=== PATIENT | male | born 1945 | race Caucasian/White ===

== ENCOUNTER → 2017-07-27 | Outpatient (CLI) | payer OTHER | LOC: CARD 10:14 | PROVIDERS: ATTEND Registered Nurse | DX: R07.9 Chest pain, unspecified (principal); I10 Essential (primary) hypertension | CPT/HCPCS: 93017 ==

== ENCOUNTER 2018-01-28 17:45 | Observation (INO) | payer OTHER ==
[~2018-01-28] VITALS: Ht 182.9 cm; Wt 88.2 kg
[2018-01-28] VITALS (7 sets, daily range): BP systolic 131–161; BP diastolic 73–105
[2018-01-28] MEDS ORDERED: AMLO10TA6 PO (18:03)
[2018-01-28] MEDS ORDERED: BENA20TA7 PO (18:03)
[2018-01-28] MEDS ORDERED: ASPIRIN 81 MG CHEW (CHILDREN'S ASA) PO ONE (18:15)
[2018-01-28] MEDS ORDERED: NITROGLYCERIN 0.4 MG SL TABS BTL 25'S SL PRN (18:15)
[2018-01-28 18:22] LABS: BASOPHILS # (AUTO) 0.1 10^3/uL (0.0-0.1); BASOPHILS % (AUTO) 1 % (0-10); EOSINOPHILS # (AUTO) 0.1 10^3/uL (0.0-0.3); EOSINOPHILS % (AUTO) 0 % (0-10); HEMATOCRIT 47 % (40-54); HEMOGLOBIN 16.3 G/DL (13.3-17.7); LYMPHOCYTES # (AUTO) 3.4 X 10^3 (1.0-4.0); LYMPHOCYTES % (AUTO) 24 % (12-44); MEAN CORPUSCULAR HEMOGLOBIN 32 PG (25-34); MEAN CORPUSCULAR HGB CONC 34 G/DL (32-36); MEAN CORPUSCULAR VOLUME 92 FL (80-99); MONOCYTES # (AUTO) 2.1 X 10^3 (0.0-1.0); MONOCYTES % (AUTO) 15 % (0-12); NEUTROPHILS # (AUTO) 8.2 X 10^3 (1.8-7.8); NEUTROPHILS % (AUTO) 60 % (42-75); PLATELET COUNT 282 10^3/uL (130-400); RED BLOOD COUNT 5.17 10^6/uL (4.35-5.85); RED CELL DISTRIBUTION WIDTH 13.5 % (10.0-14.5); WHITE BLOOD COUNT 13.8 10^3/uL (4.3-11.0)
[2018-01-28 18:28] LABS: PROTHROMBIN TIME PATIENT 13.1 SEC (12.2-14.7)
[2018-01-28] MEDS ORDERED: NS IV 1000 ML 1,000 ML IV ONE (18:30)
--- NOTE | 2018-01-28 18:30 | ED Chest Pain ---
General Chief Complaint: Chest Pain Stated Complaint: WEIRD CHEST PAIN Nursing Triage Note: AMB TO ROOM C/O CHEST PAIN SINCE 10A WAS MOVING APPLIANCES WORSE ON INSPIRATION AND MOVING NO SOA Nursing Sepsis Screen: No Definite Risk Source: patient (SOMEWHAT DIFFICULT HISTORIAN--DOES NOT VOLUNTEER ANY INFORMATION, AND GIVES VERY BRIEF ANSWERS) History of Present Illness Date Seen by Provider: Jan 28, 2018 Time Seen by Provider: 17:50 Initial Comments PT ARRIVES VIA POV FROM HOME C/O MID CHEST DISCOMFORT SINCE 1000 AM TODAY RATES PAIN 5/10 PAIN RADIATES UP INTO NECK STATES PAIN BEGAN WHILE HE WAS TAKING APPLIANCES OUT OF HOUSE AND DOING HEAVY EXERTION ALL DAY--GOING UP AND DOWN STAIRS ALL DAY, TAKING LOTS OF TRASH, ETC. OUT TO DUMPSTER ALL DAY, ETC. STATES PAIN IS WORSE WITH BREATHING, AND MOVING AND WALKING--STATES "LIKE A VIBRATION" STATES PAIN BEGAN WITH HEAVY EXERTION, BUT CLAIMS THAT EXERTION DOES NOT MAKE IT WORSE, BUT NOTICES IT WORSE WITH REST NO SHORTNESS OF BREATH DENIES PALPITATIONS NO SWEATS NO SWELLING IN LEGS/FEET OR PAIN IN CALVES NO COUGH NO FEVER OR RECENT ILLNESS NO NAUSEA/VOMITING NO DIZZINESS OR SYNCOPE NO HISTORY OF SIMILAR PT JUST GOT BACK FROM A TRIP TO [place] A WEEK AGO. PCP: [facility] Allergies and Home Medications Allergies Coded Allergies: No Known Drug Allergies (Unverified , 01/28/18) Patient Home Medication List Home Medication List Reviewed: Yes Review of Systems Review of Systems Constitutional: no symptoms reported; No chills, No diaphoresis, No dizziness, No fever EENTM: No Symptoms Reported Respiratory: No Symptoms Reported; Denies Cough, Denies Orthopnea, Denies Shortness of Air, Denies SOA With Exertion Cardiovascular: See HPI, Chest Pain; Denies Edema, Denies Irregular Heart Rate , Denies Lightheadedness, Denies Palpitations, Denies Syncope Gastrointestinal: No Symptoms Reported; Denies Abdominal Pain, Denies Nausea, Denies Vomiting Genitourinary: No Symptoms Reported Musculoskeletal: see HPI; No back pain Skin: no symptoms reported Psychiatric/Neurological: No Symptoms Reported; Denies Numbness, Denies Paresthesia Endocrine: No Symptoms Reported Hematologic/Lymphatic: No Symptoms Reported Past Rwhanfk-Biyori-Vyeinw Hx Patient Social History Alcohol Use: Denies Use Recreational Drug Use: No Smoking Status: Never a Smoker Recent Foreign Travel: Yes ([place]) Contact w/Someone Who Travel: Yes Recent Infectious Disease Expo: No Past Medical History Surgeries: Yes (HERNIA REPAIR) Abdominal, Appendectomy Respiratory: No Cardiac: Yes Hypertension Neurological: No Genitourinary: No Gastrointestinal: No Musculoskeletal: No Endocrine: No HEENT: No Cancer: No Psychosocial: No Integumentary: No Blood Disorders: No Physical Exam Vital Signs Vital Signs - First Documented 01/28/18 17:45 Temp 97.8 Pulse 90 Resp 18 B/P (MAP) 173/89 (117) Pulse Ox 96 Capillary Refill : Less Than 3 Seconds Height, Weight, BMI Height: 6'" Weight: 190lbs. oz. 86.923185hp; BMI Method:Stated General Appearance: No Apparent Distress, WD/WN, Other (FLAT AFFECT, DOES NOT MAKE EYE CONTACT--LOOKS STRAIGHT AHEAD) Neck: Full Range of Motion, Normal Inspection, Non Tender, Supple; No Carotid Bruit, No JVD Respiratory: Chest Non Tender, Normal Breath Sounds, No Accessory Muscle Use, No Respiratory Distress Cardiovascular: Regular Rate, Rhythm, No Edema, No JVD, No Murmur, Normal Peripheral Pulses Gastrointestinal: Normal Bowel Sounds, No Organomegaly, No Pulsatile Mass, Non Tender, Soft Extremity: Normal Capillary Refill, Normal Inspection, Normal Range of Motion, Non Tender, No Calf Tenderness, No Pedal Edema Neurologic/Psychiatric: Alert, Oriented x3, No Motor/Sensory Deficits, taper/finisher II- XII Norm as Tested Skin: Normal Color, Warm/Dry Progress/Results/Core Measures Results/Orders Lab Results Laboratory Tests Test 01/28/18 18:11 Range/Units White Blood Count 13.8 H 4.3-11.0 10^3/uL Red Blood Count 5.17 4.35-5.85 10^6/uL Hemoglobin 16.3 13.3-17.7 G/DL Hematocrit 47 40-54 % Mean Corpuscular Volume 92 80-99 FL Mean Corpuscular Hemoglobin 32 25-34 PG Mean Corpuscular Hemoglobin Concent 34 32-36 G/DL Red Cell Distribution Width 13.5 10.0-14.5 % Platelet Count 282 130-400 10^3/uL Mean Platelet Volume 10.0 7.4-10.4 FL Neutrophils (%) (Auto) 60 42-75 % Lymphocytes (%) (Auto) 24 12-44 % Monocytes (%) (Auto) 15 H 0-12 % Eosinophils (%) (Auto) 0 0-10 % Basophils (%) (Auto) 1 0-10 % Neutrophils # (Auto) 8.2 H 1.8-7.8 X 10^3 Lymphocytes # (Auto) 3.4 1.0-4.0 X 10^3 Monocytes # (Auto) 2.1 H 0.0-1.0 X 10^3 Eosinophils # (Auto) 0.1 0.0-0.3 10^3/uL Basophils # (Auto) 0.1 0.0-0.1 10^3/uL Prothrombin Time 13.1 12.2-14.7 SEC INR Comment 1.0 0.8-1.4 Activated Partial Thromboplast Time 29 24-35 SEC Sodium Level 140 135-145 MMOL/L Potassium Level 4.0 3.6-5.0 MMOL/L Chloride Level 107 98-107 MMOL/L Carbon Dioxide Level 22 21-32 MMOL/L Anion Gap 11 5-14 MMOL/L Blood Urea Nitrogen 18 7-18 MG/DL Creatinine 1.20 0.60-1.30 MG/DL Estimat Glomerular Filtration Rate 60 BUN/Creatinine Ratio 15 Glucose Level 95 70-105 MG/DL Calcium Level 9.5 8.5-10.1 MG/DL Corrected Calcium 9.2 8.5-10.1 MG/DL Magnesium Level 2.3 1.8-2.4 MG/DL Total Bilirubin 0.7 0.1-1.0 MG/DL Aspartate Amino Transf (AST/SGOT) 16 5-34 U/L Alanine Aminotransferase (ALT/SGPT) 19 0-55 U/L Alkaline Phosphatase 50 40-136 U/L Total Creatine Kinase 106 30-200 U/L Creatine Kinase MB 1.7 <6.6 NG/ML Myoglobin 44.0 10.0-92.0 NG/ML Troponin I < 0.30 <0.30 NG/ML B-Type Natriuretic Peptide 47.4 <100.0 PG/ML Total Protein 7.8 6.4-8.2 GM/DL Albumin 4.4 3.2-4.5 GM/DL Amylase Level 90 25-125 U/L Lipase 37 8-78 U/L My Oswald Akers - HEBER RODRIGUEZ DO Cbc With Automated Diff (01/28/18 18:11) Magnesium (01/28/18 18:11) Chest 1 View, Ap/Pa Only (01/28/18 18:11) Ekg Tracing (01/28/18 18:11) Cardiac Profile 1 (01/28/18 18:11) Comprehensive Metabolic Panel (01/28/18 18:11) Myoglobin Serum (01/28/18 18:11) Protime With Inr (01/28/18 18:11) Partial Thromboplastin Time (01/28/18 18:11) O2 (01/28/18 18:11) Monitor-Rhythm Ecg Trace Only (01/28/18 18:11) Lipid Panel (01/29/18 06:00) Aspirin Chewable Tablet (Baby Aspirin Ch (01/28/18 18:15) Nitroglycerin 0.4 Mg Btl 25's (Nitrostat (01/28/18 18:15) Saline Lock/Iv-Start (01/28/18 18:11) Creatine Kinase (01/28/18 18:11) Creatine Kinase Mb (01/28/18 18:11) Lipase (01/28/18 18:11) Amylase (01/28/18 18:11) BNP (01/28/18 18:11) Saline Lock/Iv-Start (01/28/18 18:30) Ns Iv 1000 Ml (Sodium Chloride 0.9%) (01/28/18 18:30) Ct Angio Chest W (01/28/18 18:50) Ondansetron Oral Dissolve Tab (Zofran (01/28/18 18:50) Fentanyl Injection (Sublimaze Injection (01/28/18 18:50) Iohexol Injection (Omnipaque 350 Mg/Ml 1 (01/28/18 19:00) Sodium Chloride Flush (Catheter Flush Sy (01/28/18 19:00) Ns (Ivpb) (Sodium Chloride 0.9%) (01/28/18 19:00) Pharmacy Communication (Pharmacy Communi (01/28/18 18:54) Ondansetron Injection (Zofran Injectio (01/28/18 18:58) Fentanyl Injection (Sublimaze Injection (01/28/18 20:10) Medications Given in ED Current Medications Medications Dose Ordered Sig/Svitlana Route Start Time Stop Time Status Last Admin Dose Admin Aspirin 324 mg ONCE ONCE PO 01/28/18 18:15 01/28/18 18:16 DC 01/28/18 18:20 324 MG Iohexol 150 ml ONCE ONCE IV 01/28/18 19:00 01/28/18 19:01 DC 01/28/18 19:36 125 ML Nitroglycerin 0.4 mg UD PRN SL 01/28/18 18:15 01/28/18 18:30 0.4 MG Ondansetron HCl 4 mg STK-MED ONCE .ROUTE 01/28/18 18:58 01/28/18 19:03 DC 01/28/18 19:00 4 MG Sodium Chloride 10 ml NEEDED PRN IV 01/28/18 19:00 01/28/18 19:36 10 ML Sodium Chloride 250 ml ONCE ONCE IV 01/28/18 19:00 01/28/18 19:01 DC 01/28/18 19:36 80 ML Sodium Chloride 1,000 ml @ 0 mls/hr Q0M ONCE IV 01/28/18 18:30 01/28/18 20:34 DC 01/28/18 18:37 0 MLS/HR Vital Signs/I&O 01/28/18 17:45 Temp 97.8 Pulse 90 Resp 18 B/P (MAP) 173/89 (117) Pulse Ox 96 Blood Pressure Mean: 117 Progress Progress Note : Progress Note SIGNIFICANT BP DROP INTO 70'S SYSTOLIC WITH NTG. GIVEN FLUID BOLUS. BP UP TO > 100 SYSTOLIC. PT HAD BRIEF RELIEF OF PAIN WITH NTG, BUT PAIN STARTED TO RETURN, GIVEN FENTANYL PAIN RESOLVED WITH FENTANYL PT IS NOW SMILING, TALKATIVE, JOKING, ANIMATED, MAKES GOOD EYE CONTACT. Initial ECG Impression Date: Jan 28, 2018 Initial ECG Impression Time: 17:53 Initial ECG Rate: 87 Initial ECG Rhythm: Normal Sinus Diagnostic Imaging Comments CXR--NO ACUTE PROCESS, CHRONIC MILD INTERSTITIAL CHANGES, PER RADIOLOGIST REPORT @ 1852 CT CHEST ANGIOGRAM--NO P.E OR ACUTE ABNORMALITIES, PER RADIOLOGIST REPORT @ 1999 Reviewed: Reviewed by Me Departure Communication (Admissions) 2009--SPOKE WITH DR. ELLER, HOSPITALIST CUSTOMER [employer] ASSOCIATE. ACCEPTS PT FOR ADMIT. Impression Primary Impression: Chest pain Disposition: ADMITTED INPATIENT Condition: Improved Admissions Decision to Admit Reason: Admit from ER (General) Decision to Admit/Date: Jan 28, 2018 Time/Decision to Admit Time: 20:10 Departure-Patient Inst. Referrals: PUJA PEARL MD (PCP/Family) Primary Care Physician HEBER RODRIGUEZ DO Jan 28, 2018 18:30
[2018-01-28 18:38] LABS: ALANINE AMINOTRANSFERASE 19 U/L (0-55); ALBUMIN 4.4 GM/DL (3.2-4.5); ALKALINE PHOSPHATASE 50 U/L (40-136); AMYLASE 90 U/L (25-125); BILIRUBIN,TOTAL 0.7 MG/DL (0.1-1.0); BUN/CREATININE RATIO 15; CALCIUM 9.5 MG/DL (8.5-10.1); CARBON DIOXIDE 22 MMOL/L (21-32); CHLORIDE 107 MMOL/L (98-107); CREATINE KINASE 106 U/L (30-200); GFR ESTIMATED 60; GLUCOSE 95 MG/DL (70-105); LIPASE 37 U/L (8-78); MAGNESIUM 2.3 MG/DL (1.8-2.4); SODIUM 140 MMOL/L (135-145); TOTAL PROTEIN 7.8 GM/DL (6.4-8.2)
--- NOTE | 2018-01-28 18:39 | Diagnostic Imaging Report ---
INDICATION: Chest pain. FINDINGS: There appear to be some mild chronic interstitial changes within the lungs. No findings of congestive failure. Heart size appears appropriate. There is no focal consolidation. There is no effusion or pneumothorax. No acute osseous abnormality. IMPRESSION: 1. Mild chronic interstitial change within the lungs. No acute cardiopulmonary process evident. Dictated by: Dictated on workstation # [id number]
[2018-01-28 18:45] LABS: CREATINE KINASE MB 1.7 NG/ML (<6.6)
[2018-01-28] MEDS ORDERED: ONDANSETRON 4 MG (ZOFRAN) ORAL DISSOLVE TAB SL STA (18:50)
[2018-01-28] MEDS ORDERED: fentaNYL INJECTION 100 MCG/2 ML AMP IVP STA ×2 (18:50→20:10)
[2018-01-28] MEDS ORDERED: ONDANSETRON 4 MG/2 ML (SDV) Z0FRAN ONE (18:58)
[2018-01-28] MEDS ORDERED: NS 250 ML (IVPB) BAG IV ONE (19:00)
[2018-01-28] MEDS ORDERED: CATHETER FLUSH 10 ML SYR IV PRN (19:00)
[2018-01-28] MEDS ORDERED: IOHEXOL 350 MG/ML 150 ML (OMNIPAQUE 350) VIAL IV ONE (19:00)
--- NOTE | 2018-01-28 19:45 | Diagnostic Imaging Report ---
PROCEDURE: CT angiography of the chest with contrast. TECHNIQUE: Multiple contiguous axial images were obtained through the chest after uneventful bolus administration of intravenous contrast. 2D reconstructed CTA MIP acquisitions were also performed. INDICATION: Chest pain. FINDINGS: The pulmonary arterial branches are well opacified and widely patent. There is no filling defect nor evidence for pulmonary arterial embolus. The patent thoracic aorta is nonaneurysmal and nonacute. The heart and pericardium appear unremarkable. There is no pleural effusion and there is no pneumothorax. Lungs are clear, aside from some mild dependent and juliette-fissural subsegmental atelectasis. No alveolar consolidation or vito pneumonia and no convincing evidence for pulmonary edema is found. The visualized upper abdomen reveals partial visualization of left renal parapelvic cysts with a nonfocal gallbladder. No acute appearing abnormality. IMPRESSION: Negative for PE or other acute abnormalities. Dictated by: Dictated on workstation # [id number]
[2018-01-28] MEDS ORDERED: fentaNYL INJECTION 100 MCG/2 ML AMP IVP PRN (21:45)
[2018-01-29] MEDS ORDERED: ACETAMINOPHEN 325 MG TABLET PO PRN (00:30)
[2018-01-29 00:50] LABS: CREATINE KINASE 65 U/L (30-200)
[2018-01-29] MEDS: NS IV 1000 ML 1,000 ML IV SCH ×3 (01:05→20:33)
[2018-01-29] MEDS: cefTRIAXone FOR IV USE 1,000 MG in NS (IVPB) 50 ML IV SCH (01:09)
[2018-01-29 04:00] VITALS: BP 126/71
[2018-01-29 06:41] LABS: BASOPHILS % (AUTO) 0 % (0-10); EOSINOPHILS % (AUTO) 0 % (0-10); HEMATOCRIT 44 % (40-54); HEMOGLOBIN 15.1 G/DL (13.3-17.7); LYMPHOCYTES # (AUTO) 1.7 X 10^3 (1.0-4.0); LYMPHOCYTES % (AUTO) 11 % (12-44); MEAN CORPUSCULAR HEMOGLOBIN 32 PG (25-34); MEAN CORPUSCULAR HGB CONC 34 G/DL (32-36); MEAN CORPUSCULAR VOLUME 94 FL (80-99); MEAN PLATELET VOLUME 10.7 FL (7.4-10.4); MONOCYTES # (AUTO) 2.4 X 10^3 (0.0-1.0); MONOCYTES % (AUTO) 16 % (0-12); NEUTROPHILS % (AUTO) 73 % (42-75); PLATELET COUNT 219 10^3/uL (130-400); RED BLOOD COUNT 4.69 10^6/uL (4.35-5.85); RED CELL DISTRIBUTION WIDTH 13.4 % (10.0-14.5)
[2018-01-29 06:56] LABS: ALANINE AMINOTRANSFERASE 13 U/L (0-55); ALBUMIN 3.7 GM/DL (3.2-4.5); ALKALINE PHOSPHATASE 42 U/L (40-136); BILIRUBIN,TOTAL 0.8 MG/DL (0.1-1.0); BUN/CREATININE RATIO 15; CALCIUM 8.6 MG/DL (8.5-10.1); CARBON DIOXIDE 21 MMOL/L (21-32); CHLORIDE 109 MMOL/L (98-107); CHOLESTEROL 107 MG/DL (< 200); GFR ESTIMATED > 60; GLUCOSE 129 MG/DL (70-105); HDL CHOLESTEROL 44 MG/DL (40-60); POTASSIUM 3.8 MMOL/L (3.6-5.0); SODIUM 138 MMOL/L (135-145); TOTAL PROTEIN 6.5 GM/DL (6.4-8.2); TRIGLYCERIDES 37 MG/DL (<150); VLDL CHOLESTEROL 7 MG/DL (5-40)
[2018-01-29 07:01] LABS: BAND NEUTROPHILS 0 %; NEUTROPHILS % (MANUAL) 78 %
[2018-01-29 07:02] LABS: BASOPHILS % (MANUAL) 0 %; EOSINOPHILS % (MANUAL) 0 %; LYMPHOCYTES % (MANUAL) 9 %; MONOCYTES % (MANUAL) 13 %; RBC MORPH NORMAL
[2018-01-29] MEDS ORDERED: FLU QUADRIvalent (5+ YOA) 2018-2019 (AFLURIA) 0.5 ML IM ONE (07:30)
[2018-01-29 08:00] VITALS: BP 131/79
[2018-01-29] MEDS: ASPIRIN E.C. 81 MG (ECOTRIN) TAB PO SCH (08:12)
[2018-01-29] MEDS: AZITHROMYCIN 250 MG TAB (ZITHROMAX) PO SCH (08:12)
[2018-01-29 11:10] LABS: BILIRUBIN,URINE NEGATIVE (NEGATIVE); CLARITY,URINE CLEAR; COLOR,URINE YELLOW; GLUCOSE, URINE (UA) NEGATIVE (NEGATIVE); KETONES,URINE NEGATIVE (NEGATIVE); LEUKOCYTE ESTERASE ,URINE NEGATIVE (NEGATIVE); NITRITE,URINE NEGATIVE (NEGATIVE); PH,URINE 7 (5-9); PROTEIN,URINE NEGATIVE (NEGATIVE); UROBILINOGEN,URINE NORMAL (NORMAL)
[2018-01-29 11:25] LABS: BACTERIA,URINE NEGATIVE /HPF
[2018-01-29 12:53] VITALS: BP 142/65
--- NOTE | 2018-01-29 13:28 | History & Physical-Hospitalist ---
History of Present Illness HPI/Chief Complaint The patient is a 72-year-old white male who presented to the emergency room last evening with complaints of chest pain. He reported that he had done significant physical exertion over the 2 days prior including moving appliances in the process of remodeling a rental property. In addition he carried to roles of carpeting to be discarded from the building and threw them into a dumpster. He began to experience pain particularly on the right lower rib cage. He had a exercise stress test at the request of Dr. Lopez earlier in the summer. He passed that without problems. During the night I was called after midnight with the report of a temperature to 101.3. His white count in the emergency room was 13,000+ and this morning is 15,000. There does not appear to be a definable source of infection. Blood cultures are pending. Date Seen 01/29/18 Time Seen by a Provider: 13:26 Attending Physician Tate Eller MD PCP Mile Lopez MD Referring Physician Date of Admission Jan 28, 2018 at 20:39 Home Medications & Allergies Home Medications Reviewed patient Home Medication Reconciliation performed by pharmacy medication reconciliations health record technician and/or nursing. Patients Allergies have been reviewed. Allergies Allergies Coded Allergies No Known Drug Allergies (Unverified01/28/18) Past Kymhyvp-Xxgjik-Ogryoe Hx Patient Social History Alcohol Use: Denies Use Recreational Drug Use: No Smoking Status: Never a Smoker Physical Abuse Screen: No Sexual Abuse: No Recent Foreign Travel: Yes Contact w/other who traveled: Yes Recent Hopitalizations: No Recent Infectious Disease Expo: No Seasonal Allergies Seasonal Allergies: No Past Medical History Surgeries: Abdominal, Appendectomy Currently Using CPAP: No Currently Using BIPAP: No Cardiac: Hypertension Sexually Transmitted Disease: No HIV/AIDS: No History of Blood Disorders: No Physical Exam Physical Exam Vital Signs Vital Signs - First Documented 01/28/18 01/28/18 01/29/18 17:45 20:54 04:05 Temp 97.8 Pulse 90 Resp 18 B/P (MAP) 173/89 (117) Pulse Ox 96 O2 Delivery Room Air O2 Flow Rate 2.00 Capillary Refill : Less Than 3 Seconds Height, Weight, BMI Height: 6'0.00" Weight: 194lbs. 6.0oz. 88.901666yr; 26.4 BMI Method:Stated Results Results/Procedures Labs Laboratory Tests 01/28/18 18:11 01/29/18 06:05 Patient resulted labs reviewed. Clinical Quality Measures AMI/AHF: ASA po Prior to arrival: No DVT/VTE Risk/Contraindication: Risk Factor Score Per Nursin RFS Level Per Nursing on Admit: 2=Moderate TATE ELLER MD Jan 29, 2018 13:28
[2018-01-29 16:02] VITALS: BP 135/63
[2018-01-29 19:41] VITALS: BP 139/67
[2018-01-30] VITALS: BP 127/66
[2018-01-30] MEDS: cefTRIAXone FOR IV USE 1,000 MG in NS (IVPB) 50 ML IV SCH (00:40)
[2018-01-30 04:00] VITALS: BP 108/57
[2018-01-30] MEDS: NS IV 1000 ML 1,000 ML IV SCH (06:41)
[2018-01-30 08:00] VITALS: BP 148/72
[2018-01-30] MEDS: ASPIRIN E.C. 81 MG (ECOTRIN) TAB PO SCH (09:17)
[2018-01-30] MEDS: AZITHROMYCIN 250 MG TAB (ZITHROMAX) PO SCH (09:17)
--- NOTE | 2018-01-30 11:14 | Progress Note-Hospitalist ---
Progress Note Progress Notes/Assess & Plan Date Seen 01/30/18 Time Seen by Provider: 11:09 Assessment & Plan The patient has remained afebrile with a maximum temperature of 99.6 since the 101.3 recorded at 0058 on 01/29. He reports that his chest discomfort is greatly improved. It is mostly noted when lying on his side in bed and taking a deep breath. Blood cultures show no growth at this time. Physical exam: he is up and about his room. Lungs are clear to auscultation. CV is regular without tachycardia or murmur. Ankles show no pedal edema. Impression: Musculoskeletal chest pain. 2.fleeting fever now resolved Plan: Discharge. See discharge sequence for medications and routines. Focused Exam Lactate Level 01/29/18 00:45: Lactic Acid Level 1.60 LESLIE ELLER MD Jan 30, 2018 11:14
--- NOTE | 2018-01-30 11:21 | Discharge Instructions ---
Discharge Instructions Patient Instructions Patient Instructions: Medications as listed on the discharge sequence. Resume activities as tolerated. Naproxen or ibuprofen to be used for your aches and pains if necessary. Return to [facility]: If decline in condition Activity & Diet Discharge Diet: No Restrictions Activity as Tolerated: Yes LESLIE ELLER MD Jan 30, 2018 11:21
[2018-01-30 12:05] VITALS: BP 148/72
== END 2018-01-30 11:16 | disposition home or self-care (01) ==
LOC: EDUNIT# 17:45 → ER 17:46 → UNDOADMOB 20:39 → 4TH 20:39 → UNDODISOB 01-30 12:05
PROVIDERS: ADMIT Internal Medicine; ATTEND Internal Medicine
DX: R07.9 Chest pain, unspecified (principal); R50.9 Fever, unspecified; I10 Essential (primary) hypertension
CPT/HCPCS: 36415; 71045; 71275; 80053; 80061; 81000; 82150; 82550; 82553; 83605; 83690; 83735; 83874; 83880; 84484; 85007; 85025; 85027; 85610; 85730; 87040; 93005; 93041; G0378